=== PATIENT | female | born 1945 | race Caucasian/White ===

== ENCOUNTER → 2016-09-09 | Day surgery (SDC) | payer OTHER ==
[~2016-09-09] MED LIST: ACETAMINOPHEN 1000 MG/100 ML VIAL IV ONE; ACETAMINOPHEN/HYDROcodone 325 MG/5 MG TAB ONE; BACITRACIN IM FOR SOLN 50,000 UNIT VIAL ONE; BUPIVACAINE/EPINEPHRINE 0.25% PF 30 ML VIAL ONE; GENTAMICIN SULFATE 80 MG/2 ML VIAL ONE; LACTATED RINGER'S 1000 ML INJ 1,000 ML ONE; LIDOCAINE 1%/EPINEPHrine 1:100,000 SOLN 30 ML VIAL ONE; MEPERIDINE HCL 25 MG/ML VIAL ONE; MEPERIDINE HCL 50 MG/ML VIAL ONE; MIDAZOLAM HCL 2 MG/2 ML VIAL ONE; ONDANSETRON HCL 4 MG/2 ML VIAL IV PUSH ONE; PROPOFOL 200 MG/20 ML AMP IV ONE; SODIUM CHLORIDE 0.9% 20 ML VIAL ONE; ceFAZolin INJ 1,000 MG VIAL ONE
--- NOTE | 2016-09-09 12:33 | TN ---
cc: YURIY BORDEN M.D. DATE OF SURGERY 09/09/2016 PREOPERATIVE DIAGNOSIS Capsular contracture left breast with bleeding gels wishes to exchange implants PROCEDURE Removal/replacement of implants with the [facility] Mari volume 325, serial number of the right breast implant device [id number] and to the left [id number]. The left breast also underwent full capsulectomy. Both breasts underwent lateral, medial, and inferior capsulorrhaphies. SURGEON Yuriy Borden MD/FACS [employer] Remy Georges MS-3 DRAINS One JUAN drain to the left breast. COMPLICATIONS None PROCEDURE After informed consent, marked and anesthetized. The skin was sterilized with Betadine solution and sterile draping applied. Also applied a breast block, a total of 60 cc of 1% lidocaine with epinephrine mixed with 0.25% Marcaine in a 2:1 ratio. Through a 4-1/2 to 5 cm inframammary incision, the capsule was properly encountered. This was opened in the right breast and the implant was removed intact with no problem whatsoever. I performed the lateral inferior capsulorrhaphies again after irrigating the pocket with copious antibiotic solution. The capsulorrhaphies were done utilizing 0-silk in multiple layers lateral, medially and inferiorly. Isolating the skin, the implant was introduced utilizing no-touch technique. Our attention was directed to the left breast where a full capsulectomy was encountered due to the thickness and the significant contraction that we found. This was properly removed without any problems and sent to pathology for further analysis. No evidence of other pathology was identified. I proceeded and performed a good irrigation. Isolation of the skin, introduction of both the implants through a separate stab wound bringing a 7 liters JUAN drain which was secured in place utilizing 2-0 Monocryl suture. The wounds were closed after the patient was we used multiple 2-0 Monocryl sutures to the Marco Antonio's fascia, dermis and subcu. Overall, the patient tolerated the procedure well. She was awakened and extubated in the operating room, transferred back to the postanesthesia care unit in stable addition. No complications appreciated. The patient tolerated the procedure fairly well. MD ARACELI Dickerson/ELYSSA /12:17 PM /12:26 PM
== END | disposition home or self-care (01) ==
LOC: ESDC 08:28
PROVIDERS: ATTEND Plastic Surgery
DX: Z41.1 Encounter for cosmetic surgery (principal)
CPT/HCPCS: 88304; 88305; C1789; J0131; J0690; J1580; J2175; J2250; J2405; J3010; J7120